=== PATIENT | female | born 1955 | race Caucasian/White ===

== ENCOUNTER 2024-12-16 09:52 | Outpatient (AMB) | payer MEDICARE, SELFPAY ==
--- NOTE | 2024-12-16 11:13 | A.SPINEOV_ITS ---
Intake Visit Reasons: LBP sciatica pain Right side Intake Note: Ms. Lau is here today c/o Rt. sided low back sciatica pain. MRI done @ [facility] (brought discs). 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 HPI: This 69-year-old female developed pain across the lumbar spine in February of 2024. Initially anti-inflammatory drugs were helping but currently have no significant effect anymore. Later on the back pain was associated with radiating pain down her right leg. The pain goes to the lateral side of her leg down to the outside of her lower leg or sanders. The pain comes with walking and standing. The symptoms are debilitating. She recently retired and now can not do her daily activities including gardening. She is still walks a 1/2 hour with a friend but then has to sit down. The pain down her leg is associated with numbness and tingling. Weakness. She tried physical therapy and chiropractic therapy. Chiropractor reduced her pain but not to a level that she is functional. PMH: Hypertension, low thyroid, hysterectomy, torn menisci Medications: Meloxicam cyclobenzaprine, amlodipine, valsartan hydrochlorothiazide, levothyroxine Allergies: Bactrim Social history: . Retired. Nonsmoker Physical Exam: Pleasant female. She walks in a flexed position. Changing positions is painful in the lower spine. Straight leg raise is negative. No motor sensory deficits Radiological Studies: MRI done at [facility] shows a unilateral disc collapse towards the right side at L4-5 causing severe right L4 foraminal stenosis and L4-5 lateral recess stenosis. An x-ray shows a lumbar degenerative scoliosis caused by the unilateral disc collapse L4-5. No spondylolisthesis Impression/Plan: This patient is suffering from low back pain and unilateral neurogenic claudication due to a unilateral disc collapse L4-5 that results in a lumbar degenerative scoliosis, severe right L4 foraminal stenosis and lateral recess stenosis. The best treatment in my opinion is to correct the lumbar degenerative scoliosis through an oblique lumbar interbody fusion. This minimally invasive approach will allow me to align the anatomical structures and indirectly decompress the nervous structures without bone removal or interruption of any ligaments or muscles. I explained my rationale for fusion and not to perform a right L4 foraminotomy only. She will have a 2nd opinion with Dr. Castillo and decides what she wants to do. Thank you for allowing me to participate in your patients care. total time spent was 50 minutes in counseling ,coordination of plan, personal review of imaging, surgical decision making and subsequent plan Elliott Phillips MD, PhD Sp[facility] Trained Neurosurgeon Director, [facility] Coding Level of Care Code New Pt Level 4 (32739) Diagnoses Scoliosis of lumbar region due to degenerative disease of spine in adult M41.56
== END 2024-12-16 12:09 | disposition home or self-care (01) ==
LOC: HO.HNS 09:53
PROVIDERS: PCP Internal Medicine; Visit Provider Neurological Surgery
DX: M41.56 Other secondary scoliosis, lumbar region (principal)
CPT/HCPCS: 99204

== ENCOUNTER → 2024-12-16 09:52 | Outpatient (BNVA) | payer MEDICARE, SELFPAY | PROVIDERS: PCP Internal Medicine; Visit Provider Neurological Surgery | DX: M41.56 Other secondary scoliosis, lumbar region (principal) | CPT/HCPCS: 99202 ==